=== PATIENT | female | born 1955 | race Caucasian/White ===

== ENCOUNTER → 2018-02-23 | Outpatient (CLI) | payer OTHER ==
[~2018-02-23] MED LIST: ASPIRIN325; CALCIUM OYSTER500 MG PO; LORTABELXR PO
== END ==
LOC: RAD 16:32
DX: M25.522 Pain in left elbow (principal); R10.13 Epigastric pain

== ENCOUNTER → 2019-01-22 | Outpatient (CLI) | payer OTHER | LOC: ULTRA 14:41 | DX: M79.662 Pain in left lower leg (principal) ==

== ENCOUNTER → 2019-06-11 | Outpatient (CLI) | payer OTHER | LOC: RAD 12:31 | DX: R05 Cough (principal); R51 Headache ==

== ENCOUNTER → 2020-10-13 | Outpatient (CLI) | payer OTHER ==
[2020-10-13 14:36] LABS: ABSOLUTE NEUTROPHILS 2.8 thou/uL (1.4-8.2); BASOPHILS 0.6 % (0.0-2.0); EOSINOPHILS 2.5 % (0.0-3.0); HEMATOCRIT 41.7 % (37.0-47.0); HEMOGLOBIN 13.9 gm/dL (12.0-15.0); LYMPHOCYTES 40.2 % (24.0-44.0); MCH 31.6 pg (26.0-34.0); MCHC 33.3 g/dL (28.0-37.0); MCV 94.6 fL (80.0-100.0); MONOCYTES 7.1 % (1.0-8.0); PLATELET COUNT 279 thou/uL (150-400); POLYS 49.6 % (36.0-66.0); RBC 4.41 mil/uL (4.20-5.00); RDW 12.9 % (10.5-14.5); WBC 5.6 thou/uL (4.0-11.0)
[2020-10-13 14:57] LABS: ALBUMIN 3.8 g/dL (3.4-5.0); ANION GAP 8 mmol/L (7-16); BUN 9 mg/dL (7-18); CALCIUM 8.5 mg/dL (8.5-10.1); CHLORIDE 102 mmol/L (98-107); CHOLESTEROL 219 mg/dL (<200); CO2 30 mmol/L (21-32); CREATININE 0.9 mg/dL (0.6-1.0); GLUCOSE 119 mg/dL (74-106); HDL CHOLESTEROL 40 mg/dL (>40); LDL CHOLESTEROL 117 mg/dL (<100); POTASSIUM 4.2 mmol/L (3.5-5.1); SGOT 31 U/L (15-37); SGPT 36 U/L (30-65); SODIUM 140 mmol/L (136-145); TC:HDL 5.5 Ratio (Not establshd); TOTAL BILIRUBIN 0.3 mg/dL (0.2-1.0); TOTAL PROTEIN 7.3 g/dL (6.4-8.2); TRIGLYCERIDE 314 mg/dL (<150); VLDL 63 mg/dL (<40)
[2020-10-14 01:06] LABS: GLYCOHEMOGLOBIN (HGB A1C) 5.4 % (4.8-5.6)
== END ==
LOC: LAB 13:56
PROVIDERS: ATTEND Family Medicine
DX: Z00.00 Encounter for general adult medical examination without abnormal findings (principal)

== ENCOUNTER → 2021-03-30 | Outpatient (CLI) | payer OTHER | LOC: SJCVCIMAG 14:38 | PROVIDERS: ATTEND Internal Medicine | DX: R00.2 Palpitations (principal) ==

== ENCOUNTER → 2021-03-30 | Outpatient (CLI) | payer OTHER | LOC: LAB 15:13 | PROVIDERS: ATTEND Internal Medicine | DX: R06.02 Shortness of breath (principal) ==

== ENCOUNTER → 2021-05-16 | Outpatient (CLI) | payer OTHER | LOC: BC 14:33 | PROVIDERS: ATTEND Family Medicine | DX: Z12.31 Encounter for screening mammogram for malignant neoplasm of breast (principal); N64.89 Other specified disorders of breast ==